=== PATIENT | male | born 1990 | race Caucasian/White ===

== ENCOUNTER 2023-10-30 08:12 | Emergency (ER) | payer OTHER ==
[~2023-10-30] VITALS: Ht 177.8 cm; Wt 104.0 kg
[2023-10-30 08:15] VITALS: BP 143/88; TEMP 97.9; O2SAT 98
[2023-10-30] MEDS ORDERED: CYCL10TA21 MT (08:53)
[2023-10-30] MEDS ORDERED: NAPR-681 MT (08:53)
[2023-10-30 09:05] VITALS: PULSE 94; RESP 18
== END 2023-10-30 09:06 | disposition home or self-care (01) ==
LOC: ER 08:25
DX: S16.1XXA Strain of muscle, fascia and tendon at neck level, initial encounter (principal); S29.012A Strain of muscle and tendon of back wall of thorax, initial encounter; V49.49XA Driver injured in collision with other motor vehicles in traffic accident, initial encounter; Y93.89 Activity, other specified; Y92.89 Other specified places as the place of occurrence of the external cause; Y99.8 Other external cause status
CPT/HCPCS: 99283